=== PATIENT | female | born 1950 | race Caucasian/White ===

== ENCOUNTER 2023-11-03 19:31 | Emergency (ER) | payer MEDICARE ==
[~2023-11-03] VITALS: Ht 165.1 cm; Wt 81.6 kg
[2023-11-03 19:51] VITALS: TEMP 97.9
[2023-11-03 20:53] LABS: BASOPHILS # (AUTO) 0.1 K/uL (0.0-0.2); BASOPHILS % (AUTO) 0.7 % (0.0-2.0); EOSINOPHILS # (AUTO) 0.3 K/uL (0.0-0.7); EOSINOPHILS % (AUTO) 3.7 % (0.0-6.0); HEMATOCRIT 35 % (33-45); HEMOGLOBIN 11.9 g/dL (11.5-14.8); LYMPHOCYTES # (AUTO) 2.2 K/uL (0.8-4.8); LYMPHOCYTES % (AUTO) 28.9 % (20.0-44.0); MEAN CORPUSCULAR HEMOGLOBIN 33 PG (26.0-33.0); MEAN CORPUSCULAR HGB CONC 34 g/dl (31.0-36.0); MEAN CORPUSCULAR VOLUME 97 fL (82-100); MONOCYTES # (AUTO) 0.6 K/uL (0.1-1.30); MONOCYTES % (AUTO) 8.6 % (2.0-12.0); NEUTROPHILS # (AUTO) 4.4 K/uL (1.8-8.9); NEUTROPHILS % (AUTO) 58.1 % (43.0-81.0); PLATELET COUNT (AUTO) 226 K/uL (150-450); RED CELL DISTRIBUTION WIDTH 13.6 % (11.5-15.0); WHITE BLOOD COUNT (AUTO) 7.5 K/uL (4.3-11.0)
[2023-11-03 20:57] LABS: CALCIUM, SERUM 8.8 mg/dL (8.5-10.1); CARBON DIOXIDE 30 mmol/L (21-32); CHLORIDE 104 mmol/L (98-107); CREATININE 0.8 mg/dL (0.6-1.3); GLUCOSE 95 mg/dL (74-106); POTASSIUM 4.1 mmol/L (3.5-5.1); SODIUM SERUM 140 mmol/L (136-145); UREA NITROGEN, BLOOD 14 mg/dL (7-18)
[2023-11-03 21:10] LABS: NT-PRO BNP 374 pg/mL (0-125)
[2023-11-03 22:04] LABS: ALBUMIN 3.8 g/dL (3.4-5.0); BILIRUBIN,DIRECT 0.2 mg/dL (0.0-0.2); BILIRUBIN,TOTAL 0.7 mg/dL (0.2-1.0); TOTAL PROTEIN, SERUM 7.4 g/dL (6.4-8.2)
[2023-11-03] MEDS ORDERED: CEPH500C2 PO (22:52)
[2023-11-03] MEDS ORDERED: SULF1TAB48 PO (22:52)
[2023-11-03] MEDS ORDERED: SULFAMETH/TRIMETH 800/160 MG 1 UDTAB TABLET ONE (22:58)
[2023-11-03] MEDS ORDERED: CEPHALEXIN MONOHYDRATE 500 MG CAPSULE PO ONE (22:58)
[2023-11-03] MEDS ORDERED: DOXY-326 PO (23:02)
[2023-11-03] MEDS ORDERED: LOSA25TA27 PO (23:02)
[2023-11-03] MEDS: CEPHALEXIN MONOHYDRATE 500 MG CAPSULE PO ONE (23:06)
[2023-11-03] MEDS: SULFAMETH/TRIMETH 800/160 MG 1 UDTAB TABLET PO ONE (23:06)
[2023-11-03 23:20] VITALS: BP 154/79; O2SAT 98
== END 2023-11-03 23:20 | disposition home or self-care (01) ==
LOC: ER 19:36
DX: M79.672 Pain in left foot (principal); I10 Essential (primary) hypertension; E78.5 Hyperlipidemia, unspecified; I48.91 Unspecified atrial fibrillation; Z88.5 Allergy status to narcotic agent; Z79.899 Other long term (current) drug therapy
CPT/HCPCS: 36415; 71045-TC; 73630-TC; 80048-TC; 80076-TC; 83880; 84484-TC; 85025-TC; 93971-TC

== ENCOUNTER 2024-01-27 11:18 | Emergency (ER) | payer MEDICARE ==
[~2024-01-27] VITALS: Ht 165.1 cm; Wt 69.9 kg
[~2024-01-27 11:18] MED LIST: CEPH500C2 PO; DOXY-326 PO; LOSA25TA27 PO
[2024-01-27] MEDS ORDERED: dexaMETHasone SOD PHOSPHATE 1 ML ONE (12:21)
[2024-01-27] MEDS: dexaMETHasone SOD PHOSPHATE 10 MG/ML VIAL IM ONE (12:29)
[2024-01-27] MEDS ORDERED: IPRATROPIUM NEB FS 0.5 MG/2.5 ML AMPUL.NEB ONE (12:31)
[2024-01-27] MEDS ORDERED: ALBUTEROL FS 2.5 MG/3 ML VIAL.NEB ONE (12:31)
[2024-01-27 12:36] VITALS: O2SAT 96
[2024-01-27] MEDS: ALBUTEROL FS 2.5 MG/3 ML VIAL.NEB CONTNEB ONE (12:36)
[2024-01-27] MEDS: IPRATROPIUM NEB FS 0.5 MG/2.5 ML AMPUL.NEB NEB ONE (12:36)
[2024-01-27 12:53] VITALS: O2SAT 99
[2024-01-27] MEDS ORDERED: ALBU18HF2 INH (13:03)
[2024-01-27] MEDS: ALBUTEROL SULFATE 8 GM HFA.AER.AD IH ONE (13:12)
[2024-01-27 13:20] VITALS: BP 124/72; TEMP 98.2; O2SAT 99
== END 2024-01-27 13:21 | disposition home or self-care (01) ==
LOC: ER 12:07
DX: J44.9 Chronic obstructive pulmonary disease, unspecified (principal); I10 Essential (primary) hypertension; I48.91 Unspecified atrial fibrillation; E78.5 Hyperlipidemia, unspecified; Z79.899 Other long term (current) drug therapy; Z88.5 Allergy status to narcotic agent
CPT/HCPCS: 99283; 71045; 96372; 94799; 94640; J1100

== ENCOUNTER 2024-10-06 07:23 | Inpatient (IN) | payer MEDICARE ==
[~2024-10-06] VITALS: Ht 165.1 cm; Wt 72.6 kg
[~2024-10-06 07:23] MED LIST changes: +ALBU18HF2 INH
[2024-10-06 08:22] LABS: BASOPHILS % (AUTO) 0.3 % (0.0-2.0); CALCIUM, SERUM 8.8 mg/dL (8.5-10.1); CARBON DIOXIDE 28 mmol/L (21-32); CHLORIDE 105 mmol/L (98-107); CREATININE 0.8 mg/dL (0.6-1.3); EOSINOPHILS # (AUTO) 0.3 K/uL (0.0-0.7); EOSINOPHILS % (AUTO) 4.1 % (0.0-6.0); GLUCOSE 139 mg/dL (74-106); HEMATOCRIT 37 % (33-45); HEMOGLOBIN 12.3 g/dL (11.5-14.8); LYMPHOCYTES # (AUTO) 1.4 K/uL (0.8-4.8); MEAN CORPUSCULAR HEMOGLOBIN 33 PG (26.0-33.0); MEAN CORPUSCULAR HGB CONC 33 g/dl (31.0-36.0); MEAN CORPUSCULAR VOLUME 99 fL (82-100); MONOCYTES # (AUTO) 0.5 K/uL (0.1-1.30); MONOCYTES % (AUTO) 6.8 % (2.0-12.0); NEUTROPHILS # (AUTO) 5.1 K/uL (1.8-8.9); NEUTROPHILS % (AUTO) 69.8 % (43.0-81.0); PLATELET COUNT (AUTO) 196 K/uL (150-450); POTASSIUM 4.3 mmol/L (3.5-5.1); RED BLOOD CELL COUNT(AUTO) 3.75 MIL/uL (4.0-5.2); RED CELL DISTRIBUTION WIDTH 14.2 % (11.5-15.0); SODIUM SERUM 141 mmol/L (136-145); UREA NITROGEN, BLOOD 18 mg/dL (7-18); WHITE BLOOD COUNT (AUTO) 7.3 K/uL (4.3-11.0)
[2024-10-06] MEDS: ALBUTEROL FS 2.5 MG/3 ML VIAL.NEB NEB ONE (08:25)
[2024-10-06] MEDS: IPRATROPIUM NEB FS 0.5 MG/2.5 ML AMPUL.NEB NEB ONE (08:25)
[2024-10-06 08:26] VITALS: O2SAT 99
[2024-10-06] MEDS ORDERED: ALBUTEROL FS 2.5 MG/3 ML VIAL.NEB ONE ×2 (08:27→09:13)
[2024-10-06] MEDS ORDERED: IPRATROPIUM NEB FS 0.5 MG/2.5 ML AMPUL.NEB ONE ×2 (08:27→09:13)
[2024-10-06] MEDS ORDERED: methylPREDNISolone SOD SUCC 125 MG/2ML VIAL ONE (08:33)
[2024-10-06] MEDS: methylPREDNISolone SOD SUCC 125 MG/2ML VIAL IV ONE (08:33)
[2024-10-06 08:34] LABS: NT-PRO BNP 817 pg/mL (0-125)
[2024-10-06 08:44] VITALS: O2SAT 99
[2024-10-06 09:08] VITALS: O2SAT 99
[2024-10-06] MEDS ORDERED: FUROSEMIDE 20 MG/2 ML VIAL ONE (09:30)
[2024-10-06] MEDS: FUROSEMIDE 20 MG/2 ML VIAL IV ONE (09:30)
[2024-10-06] MEDS ORDERED: MAGNESIUM HYDROXIDE 30 ML UDC PO PRN (11:00)
[2024-10-06] MEDS ORDERED: Z GUARD REMEDY 4 OZ OINT TP PRN (11:00)
[2024-10-06] MEDS ORDERED: MAG HYDROX/AL HYDROX/SIMETH 30 ML UDC PO PRN (11:00)
[2024-10-06] MEDS ORDERED: ACETAMINOPHEN 325 MG TABLET PO PRN (11:00)
[2024-10-06] MEDS ORDERED: ALBUTEROL FS 2.5 MG/0.5 ML VIAL.NEB NEB PRN (11:00)
[2024-10-06] MEDS ORDERED: ONDANSETRON HCL/PF 4 MG/2 ML VIAL IVP PRN (11:00)
[2024-10-06] MEDS: ENOXAPARIN SODIUM 40 MG/0.4 ML DISP.SYRIN SQ SCH (11:37)
[2024-10-06 12:25] VITALS: BP 113/69; TEMP 98.4; O2SAT 93
[2024-10-06] MEDS: methylPREDNISolone SOD SUCC 40 MG/ML VIAL IV SCH (12:27)
[2024-10-06] MEDS ORDERED: FENO145T21 PO (12:56)
[2024-10-06] MEDS ORDERED: RIVA10TA PO (12:56)
[2024-10-06] MEDS ORDERED: DILT120C93 PO (12:56)
[2024-10-06] MEDS ORDERED: TIZA4TAB11 PO (12:56)
[2024-10-06] MEDS ORDERED: ATOR40TA PO (12:56)
[2024-10-06] MEDS ORDERED: LEVO75TA7 PO (12:56)
[2024-10-06] MEDS ORDERED: ALBU18HF2 IH (12:56)
[2024-10-06 16:00] VITALS: BP 132/66; TEMP 98.1; O2SAT 93
[2024-10-06 20:00] VITALS: BP 140/66; TEMP 98.1; O2SAT 96
[2024-10-07] VITALS (9 sets, daily range): BP systolic 117–148; BP diastolic 52–70; TEMP 97.5–98.1; O2SAT 95–98
[2024-10-07 08:05] LABS: BASOPHILS % (AUTO) 0.3 % (0.0-2.0); HEMATOCRIT 37 % (33-45); HEMOGLOBIN 12.1 g/dL (11.5-14.8); LYMPHOCYTES # (AUTO) 0.9 K/uL (0.8-4.8); LYMPHOCYTES % (AUTO) 7.2 % (20.0-44.0); MEAN CORPUSCULAR HEMOGLOBIN 32 PG (26.0-33.0); MEAN CORPUSCULAR HGB CONC 33 g/dl (31.0-36.0); MEAN CORPUSCULAR VOLUME 99 fL (82-100); MONOCYTES # (AUTO) 0.4 K/uL (0.1-1.30); MONOCYTES % (AUTO) 3.2 % (2.0-12.0); NEUTROPHILS # (AUTO) 11.2 K/uL (1.8-8.9); NEUTROPHILS % (AUTO) 89.3 % (43.0-81.0); PLATELET COUNT (AUTO) 273 K/uL (150-450); RED BLOOD CELL COUNT(AUTO) 3.77 MIL/uL (4.0-5.2); RED CELL DISTRIBUTION WIDTH 14.3 % (11.5-15.0); WHITE BLOOD COUNT (AUTO) 12.6 K/uL (4.3-11.0)
[2024-10-07 08:20] LABS: CALCIUM, SERUM 9.2 mg/dL (8.5-10.1); CREATININE 0.8 mg/dL (0.6-1.3); MAGNESIUM 2.1 mg/dL (1.8-2.4); PHOSPHORUS 3.7 mg/dL (2.5-4.9); POTASSIUM 4.3 mmol/L (3.5-5.1)
[2024-10-07] MEDS: LOSARTAN POTASSIUM 25 MG TABLET PO SCH (08:54)
[2024-10-07] MEDS: IPRATROPIUM NEB FS 0.5 MG/2.5 ML AMPUL.NEB NEB SCH (10:00)
[2024-10-07] MEDS: ALBUTEROL FS 2.5 MG/0.5 ML VIAL.NEB NEB SCH (10:00)
[2024-10-07] MEDS: RIVAROXABAN 10 MG TABLET PO SCH (12:20)
[2024-10-07] MEDS: TIZANIDINE HCL 4 MG TABLET PO SCH (21:45)
[2024-10-08] VITALS (7 sets, daily range): BP systolic 64–144; BP diastolic 70–77; TEMP 97.5–97.7; O2SAT 93–98
[2024-10-08] MEDS: LEVOTHYROXINE SODIUM 75 MCG TABLET PO SCH (08:11)
[2024-10-08] MEDS: DILTIAZEM HCL CD 120 MG PO SCH (08:12)
[2024-10-08] MEDS: FENOFIBRATE NANOCRYS (145 MG) 145 MG TABLET PO SCH (08:12)
[2024-10-08] MEDS ORDERED: PRED20TA PO (08:48)
== END 2024-10-08 14:50 | disposition home or self-care (01) | DRG 190 ==
LOC: ER 07:31 → TELE 09:40 → MED 10-08 10:28
PROVIDERS: ADMIT Internal Medicine; ATTEND Internal Medicine
DX: J44.1 Chronic obstructive pulmonary disease with (acute) exacerbation (principal); J96.01 Acute respiratory failure with hypoxia; I69.354 Hemiplegia and hemiparesis following cerebral infarction affecting left non-dominant side; I50.32 Chronic diastolic (congestive) heart failure; I48.91 Unspecified atrial fibrillation; I11.0 Hypertensive heart disease with heart failure; E66.9 Obesity, unspecified; E78.5 Hyperlipidemia, unspecified; Z88.5 Allergy status to narcotic agent; Z87.891 Personal history of nicotine dependence; Z79.01 Long term (current) use of anticoagulants; Z85.038 Personal history of other malignant neoplasm of large intestine
CPT/HCPCS: 36415; 70220-TC; 71045-TC; 80048-TC; 83735-TC; 83880; 84100-TC; 84484-TC; 85025-TC; 93307-TC; 93970-TC; 94760-TC; 94799-TC; 97110-TC; 97116-TC; 97530-TC; A4223; G0378; J1650; J1940; J2919

== ENCOUNTER 2025-02-06 23:03 | Inpatient (IN) | payer MEDICARE ==
[~2025-02-06] VITALS: Ht 165.1 cm; Wt 84.8 kg
[~2025-02-06 23:03] MED LIST changes: +ALBU18HF2 IH; -ALBU18HF2 INH; +ATOR40TA PO; -CEPH500C2 PO; +DILT120C93 PO; -DOXY-326 PO; +FENO145T21 PO; +LEVO75TA7 PO; +PRED20TA PO; +RIVA10TA PO; +TIZA4TAB11 PO
[2025-02-06 23:54] LABS: PLATELET COUNT (AUTO) 232 K/uL (150-450); RED BLOOD CELL COUNT(AUTO) 3.79 MIL/uL (4.0-5.2); RED CELL DISTRIBUTION WIDTH 15.3 % (11.5-15.0); WHITE BLOOD COUNT (AUTO) 8.8 K/uL (4.3-11.0)
[2025-02-06] MEDS: IPRATROPIUM NEB FS 0.5 MG/2.5 ML AMPUL.NEB NEB ONE (23:56)
[2025-02-06] MEDS: ALBUTEROL FS 2.5 MG/3 ML VIAL.NEB NEB ONE (23:56)
[2025-02-07] VITALS (9 sets, daily range): BP systolic 128–140; BP diastolic 61–71; TEMP 97.7–98.4; O2SAT 92–99
[2025-02-07] MEDS ORDERED: ALBUTEROL FS 2.5 MG/3 ML VIAL.NEB ONE (00:01)
[2025-02-07] MEDS ORDERED: IPRATROPIUM NEB FS 0.5 MG/2.5 ML AMPUL.NEB ONE (00:01)
[2025-02-07 00:03] LABS: CALCIUM, SERUM 8.9 mg/dL (8.5-10.1); CREATININE 0.8 mg/dL (0.6-1.3); SODIUM SERUM 142 mmol/L (136-145); UREA NITROGEN, BLOOD 20 mg/dL (7-18)
[2025-02-07] MEDS ORDERED: MAG HYDROX/AL HYDROX/SIMETH 30 ML UDC PO PRN (02:00)
[2025-02-07] MEDS ORDERED: MAGNESIUM HYDROXIDE 30 ML UDC PO PRN (02:00)
[2025-02-07] MEDS ORDERED: ACETAMINOPHEN 325 MG TABLET PO PRN (02:00)
[2025-02-07] MEDS ORDERED: IPRATROPIUM NEB FS 0.5 MG/2.5 ML AMPUL.NEB NEB PRN (02:00)
[2025-02-07] MEDS ORDERED: ZOLPIDEM TARTRATE 5 MG TABLET PO PRN (02:00)
[2025-02-07] MEDS ORDERED: ALBUTEROL FS 2.5 MG/3 ML VIAL.NEB NEB PRN ×2 (02:00→09:57)
[2025-02-07] MEDS ORDERED: Z GUARD REMEDY 4 OZ OINT TP PRN (02:00)
[2025-02-07] MEDS: ALBUTEROL FS 2.5 MG/3 ML VIAL.NEB NEB ONE (02:22)
[2025-02-07] MEDS ORDERED: LOSA25TA27 PO (08:14)
[2025-02-07] MEDS ORDERED: ALBU2.5V38 IH (08:14)
[2025-02-07] MEDS: PANTOPRAZOLE 40 MG TABLET.DR PO SCH (08:30)
[2025-02-07] MEDS: ENOXAPARIN SODIUM 40 MG/0.4 ML DISP.SYRIN SQ SCH (08:31)
[2025-02-07] MEDS: ONDANSETRON HCL/PF 4 MG/2 ML VIAL IVP PRN (08:36)
[2025-02-07] MEDS ORDERED: ALBUTEROL FS 2.5 MG/3 ML VIAL.NEB IH PRN (10:00)
[2025-02-07] MEDS: RIVAROXABAN 10 MG TABLET PO SCH (17:46)
[2025-02-07] MEDS: TIZANIDINE HCL 4 MG TABLET PO SCH (21:09)
[2025-02-08] VITALS: BP 134/72; TEMP 98.4; O2SAT 98
[2025-02-08 04:00] VITALS: BP 121/58; TEMP 97.7; O2SAT 95
[2025-02-08 07:07] LABS: PLATELET COUNT (AUTO) 177 K/uL (150-450); RED BLOOD CELL COUNT(AUTO) 3.37 MIL/uL (4.0-5.2); RED CELL DISTRIBUTION WIDTH 15.2 % (11.5-15.0); WHITE BLOOD COUNT (AUTO) 9.5 K/uL (4.3-11.0)
[2025-02-08 07:08] LABS: CALCIUM, SERUM 8.5 mg/dL (8.5-10.1); CREATININE 0.6 mg/dL (0.6-1.3); PHOSPHORUS 3.7 mg/dL (2.5-4.9); SODIUM SERUM 143.0 mmol/L (136-145); UREA NITROGEN, BLOOD 19.0 mg/dL (7-18)
[2025-02-08 08:00] VITALS: BP 120/77; TEMP 97.3; O2SAT 100
[2025-02-08] MEDS: DILTIAZEM HCL CD 120 MG PO SCH (08:20)
[2025-02-08] MEDS: LEVOTHYROXINE SODIUM 75 MCG TABLET PO SCH (08:20)
[2025-02-08] MEDS: LOSARTAN POTASSIUM 25 MG TABLET PO SCH (08:20)
[2025-02-08 12:00] VITALS: BP 120/77; TEMP 97.3; O2SAT 89
[2025-02-08 16:00] VITALS: BP 137/99; TEMP 97.3; O2SAT 90
[2025-02-08 20:00] VITALS: BP_SYST 140; BP_SYST 153; BP_DIAS 67; BP_DIAS 71; TEMP 97.3; O2SAT 92
[2025-02-09] VITALS: BP 142/65; TEMP 97.5; O2SAT 91
[2025-02-09 04:00] VITALS: BP 140/71; TEMP 97.7; O2SAT 92
[2025-02-09 07:02] LABS: CALCIUM, SERUM 8.9 mg/dL (8.5-10.1); CREATININE 0.7 mg/dL (0.6-1.3); SODIUM SERUM 142.0 mmol/L (136-145); UREA NITROGEN, BLOOD 23.0 mg/dL (7-18)
[2025-02-09 07:05] LABS: PLATELET COUNT (AUTO) 221 K/uL (150-450); RED BLOOD CELL COUNT(AUTO) 3.85 MIL/uL (4.0-5.2); RED CELL DISTRIBUTION WIDTH 14.9 % (11.5-15.0); WHITE BLOOD COUNT (AUTO) 10.7 K/uL (4.3-11.0)
[2025-02-09 08:00] VITALS: BP 158/83; TEMP 92.2; O2SAT 94
[2025-02-09 18:00] VITALS: BP 153/78; TEMP 98.1; O2SAT 98
[2025-02-09 20:00] VITALS: BP 142/80; TEMP 98.1; O2SAT 92
[2025-02-10 04:00] VITALS: BP 151/72; TEMP 97.7; O2SAT 95
[2025-02-10 08:00] VITALS: BP 154/69; TEMP 97.4; O2SAT 95
[2025-02-10] MEDS ORDERED: TIOT18CA3 INH (08:29)
[2025-02-10] MEDS ORDERED: FLUT1BLS IH (08:29)
[2025-02-10] MEDS ORDERED: AZIT1PAC9 PO (08:29)
[2025-02-10] MEDS ORDERED: METH4TAB3 PO (08:29)
[2025-02-10 09:40] VITALS: O2SAT 94
[2025-02-10 10:19] VITALS: BP 151/72
== END 2025-02-10 18:01 | disposition home health service (06) | DRG 190 ==
LOC: ER 23:16 → TELE1 02-07 01:08 → TELE-TD 02-07 02:07 → TELE1 02-07 02:08 → MEDSG1 02-09 09:50
PROVIDERS: ADMIT Internal Medicine; ATTEND Internal Medicine
DX: J44.1 Chronic obstructive pulmonary disease with (acute) exacerbation (principal); J96.01 Acute respiratory failure with hypoxia; I69.354 Hemiplegia and hemiparesis following cerebral infarction affecting left non-dominant side; E03.9 Hypothyroidism, unspecified; I10 Essential (primary) hypertension; I48.91 Unspecified atrial fibrillation; Z79.01 Long term (current) use of anticoagulants; Z85.038 Personal history of other malignant neoplasm of large intestine; Z20.822 Contact with and (suspected) exposure to COVID-19; M79.662 Pain in left lower leg
CPT/HCPCS: 36415; 71045-TC; 80048-TC; 83735-TC; 83880; 84100-TC; 84484-TC; 85025-TC; 93970-TC; 94761-TC; 97116-TC; 97530-TC; G0378; J1650; J2405; J2919